=== PATIENT | male | born 1940 | race Caucasian/White ===

== ENCOUNTER 2018-10-19 19:14 | Emergency (ER) | payer MEDICARE, BC ==
[~2018-10-19] VITALS: Ht 172.7 cm; Wt 65.8 kg
--- NOTE | 2018-10-19 19:23 | NUR ---
Patient left without being seen be ERMD. Patient refused to be completely triaged
== END 2018-10-19 19:31 | disposition left against medical advice (07) ==
LOC: ER 19:16
DX: Z53.21 Procedure and treatment not carried out due to patient leaving prior to being seen by health care provider (principal)
CPT/HCPCS: A4663